=== PATIENT | male | born 1940 | race Caucasian/White ===

== ENCOUNTER 2017-12-03 14:00 | Observation (INO) | payer MEDICARE, OTHER ==
[2017-12-03 15:35] LABS: CHLORIDE,CL 103 mmol/L (98-107); SODIUM,NA 138 mmol/L (136-145)
[2017-12-03] MEDS ORDERED: Lactated Ringers 1,000 ML IV SCH (17:00)
[2017-12-03] MEDS: Lactated Ringers 1,000 ML IV SCH (21:52)
[2017-12-04] MEDS: Lactated Ringers 1,000 ML IV SCH (05:45)
[2017-12-04 06:16] VITALS: BP 122/69
[2017-12-04] MEDS ORDERED: SODIUM BICARBONATE PO SCH (07:00)
[2017-12-04] MEDS ORDERED: CITRIC ACID PO SCH (07:00)
[2017-12-04] MEDS ORDERED: ASPIRIN PO SCH (07:00)
[2017-12-04] MEDS ORDERED: Simvastatin 40 MG Tab PO SCH (08:00)
[2017-12-04] MEDS ORDERED: Lisinopril 2.5 MG Tab PO SCH (08:00)
[2017-12-04] MEDS ORDERED: Aspirin 81 MG Tab.EC PO SCH (08:00)
[2017-12-04] MEDS ORDERED: Multivitamins with Iron/Calcium/Folic Acid/Minerals Tab PO SCH (08:00)
[2017-12-04] MEDS ORDERED: risperiDONE 0.25 MG Tab PO SCH (08:00)
[2017-12-04] MEDS ORDERED: Metoprolol Succinate 50 MG Tab.ER PO SCH (08:00)
[2017-12-04] MEDS ORDERED: metFORMIN 500 MG Tab PO SCH (08:00)
[2017-12-04] MEDS ORDERED: Sertraline 50 MG Tab PO SCH (08:00)
[2017-12-04] MEDS ORDERED: ClonazePAM 0.5 MG Tab PO SCH (08:00)
--- NOTE | 2017-12-04 08:37 | EDM.PDOC ---
ED HPI GENERAL MEDICAL PROBLEM - General Chief Complaint: General Stated Complaint: er Time Seen by Provider: 12/03/17 14:05 Source of Information: Reports: Patient, Family History Limitations: Reports: No Limitations - History of Present Illness INITIAL COMMENTS - FREE TEXT/NARRATIVE: Pt. presents to ER from clinic. Pt. has a history of [place]'s Disease, and his is concern because of some neurological changes. Pt. is a resident at [facility]. He was brought to the clinic to be seen by Keli Sullivan PA-C. She felt that the pt. possibly has a stroke and was sent to ER. states that the symptoms have been progressive and worsening of the past weeks to months. Symptoms include decreased verbal output, difficulty with feeding self, and increased drooling. Staff feels that the symptoms are chronic and don't appear to be an acute problem. Onset: Unknown/Unsure Duration: Chronic, Getting Worse Location: Reports: Head, Generalized - Related Data Allergies Allergy/AdvReac Type Severity Reaction Status Date / Time No Known Allergies Allergy Verified 12/03/17 14:19 Home Meds: Home Meds Aspirin/Sod Bicarb/Citric Acid [Rabia-[place] Original] 2 tab PO ACBRKBED [History] ClonazePAM [KlonoPIN] 0.5 mg PO BID 08/13/13 [History] Lisinopril 2.5 mg PO DAILY 08/13/13 [History] Simvastatin [Zocor] 20 mg PO DAILY 08/13/13 [History] Warfarin [Coumadin] 2.5 mg PO MOWEFR@20 08/13/13 [History] metFORMIN [Glucophage] 1,000 mg PO BID 08/13/13 [History] Aspirin [Halfprin] 81 mg PO DAILY 03/31/15 [History] Metoprolol Succinate [Toprol XL 50mg] 50 mg PO DAILY 03/31/15 [History] Multivitamin [Multivitamins] 1 each PO DAILY 10/31/15 [History] SitaGLIPtin [Januvia] 100 mg PO DAILY 10/31/15 [History] Sertraline [Zoloft] 50 mg PO DAILY 12/03/17 [History] Warfarin [Coumadin] 5 mg PO SUTUTHSA@20 12/03/17 [History] risperiDONE [Risperdal] 0.5 mg PO BID 12/03/17 [History] Past Medical History HEENT History: Reports: Hard of Hearing Cardiovascular History: Reports: High Cholesterol, Hypertension Gastrointestinal History: Reports: Other (See Below) Other Gastrointestinal History: dysphagia Genitourinary History: Reports: Prostate Disorder Musculoskeletal History: Reports: Osteoarthritis Neurological History: Reports: Other (See Below) Other Neuro History: [place]'s Psychiatric History: Reports: Dementia, Depression Endocrine/Metabolic History: Reports: Diabetes, Type II Social & Family History - Tobacco Use Smoking Status *Q: Never Smoker Second Hand Smoke Exposure: No - Caffeine Use Caffeine Use: Reports: None - Recreational Drug Use Recreational Drug Use: No ED ROS GENERAL - Review of Systems Review Of Systems: See Below Constitutional: Reports: No Symptoms HEENT: Reports: No Symptoms Respiratory: Reports: No Symptoms Cardiovascular: Reports: No Symptoms Endocrine: Reports: No Symptoms GI/Abdominal: Reports: No Symptoms : Reports: No Symptoms Musculoskeletal: Reports: No Symptoms Skin: Reports: No Symptoms Neurological: Reports: Pre-Existing Deficit (please see above. No pain. No difficulty with paresthesia or decreased muscolo). Denies: Confusion, Dizziness , Headache, Numbness, Syncope Psychiatric: Reports: No Symptoms Hematologic/Lymphatic: Reports: No Symptoms Immunologic: Reports: No Symptoms ED EXAM, GENERAL - Physical Exam Exam: See Below Exam Limited By: No Limitations General Appearance: Alert, WD/WN Eye Exam: Bilateral Eye: EOMI, PERRL Ears: Normal External Exam, Normal Canal, Hearing Grossly Normal, Normal TMs Ear Exam: Bilateral Ear: Auricle Normal, Canal Normal, TM normal Nose: Normal Inspection, Normal Mucosa, No Blood Throat/Mouth: Normal Inspection, Normal Lips, Normal Teeth, Normal Gums, Normal Oropharynx, Normal Voice, No Airway Compromise Head: Atraumatic, Normocephalic Neck: Normal Inspection, Supple, Non-Tender, Full Range of Motion Respiratory/Chest: No Respiratory Distress, Lungs Clear, Normal Breath Sounds, No Accessory Muscle Use, Chest Non-Tender Cardiovascular: Normal Peripheral Pulses, Regular Rate, Rhythm, No Edema, No Gallop, No JVD, No Murmur, No Rub Peripheral Pulses: 4+: Radial (L), Radial (R) GI/Abdominal: Normal Bowel Sounds, Soft, Non-Tender, No Organomegaly, No Distention, No Abnormal Bruit, No Mass (Male) Exam: No Hernia, Normal Inspection, Normal Prostate, Circumcised Rectal (Males) Exam: Deferred Back Exam: Normal Inspection, Full Range of Motion, NT Extremities: Normal Inspection, Normal Range of Motion, Non-Tender, Normal Capillary Refill, No Pedal Edema Neurological: No Motor/Sensory Deficits, Confused, Slow to Respond Psychiatric: Normal Affect, Normal Mood Skin Exam: Warm, Dry, Intact, Normal Color, No Rash Lymphatic: No Adenopathy Course - Vital Signs Last Recorded V/S: Last Vital Signs Temp 36.6 C 12/04/17 06:00 Pulse 68 12/04/17 06:00 Resp 19 12/04/17 06:00 BP 122/69 12/04/17 06:00 Pulse Ox 94 L 12/04/17 06:00 - Orders/Labs/Meds Orders: Active Orders 24 hr Category Date Time Status Chest 1V Frontal [CR] Stat Exams 12/03/17 14:34 Taken CULTURE BLOOD [BC] Stat Lab 12/03/17 14:50 Results CULTURE BLOOD [BC] Stat Lab 12/03/17 16:15 Results CULTURE STREP A CONFIRMATION [RM] Stat Lab 12/03/17 14:50 Results FREE T3 [REF] Stat Lab 12/03/17 14:50 Received FREE T4 [REF] Stat Lab 12/03/17 14:50 Received STREP SCRN A RAPID W CULT CONF [RM] Stat Lab 12/03/17 14:50 Results UA W/MICROSCOPIC [URIN] Stat Lab 12/03/17 15:23 Ordered Blood Culture x2 Reflex Set [OM.PC] Stat Oth 12/03/17 15:58 Ordered Medication Orders Aspirin (Halfprin) 81 mg PO DAILY [facility] Clonazepam (Klonopin) 0.5 mg PO BID [facility] Lactated Ringer's (Ringers, Lactated) 1,000 mls @ 125 mls/hr IV ASDIRECTED [facility] Last Admin: 12/04/17 05:45 Dose: 125 mls/hr Infusion: 12/04/17 05:45 Dose: 125 mls/hr Admin: 12/03/17 21:52 Dose: 125 mls/hr Lisinopril (Prinivil) 2.5 mg PO DAILY [facility] Metformin HCl (Glucophage) 1,000 mg PO BIDMEALS [facility] Metoprolol Succinate (Toprol Xl) 50 mg PO DAILY [facility] Multivitamins/Minerals (Thera M Plus) 1 tab PO DAILY [facility] Aspirin/Sod Bicarb/Citric Acid [Rabia- [place] Original] Own Supply 2 tab PO ACBRKBED [facility] Risperidone (Risperidal) 0.5 mg PO BID [facility] Sertraline HCl (Zoloft) 50 mg PO DAILY [facility] Simvastatin (Zocor) 20 mg PO DAILY [facility] Sitagliptin Phosphate (Januvia) 100 mg PO DAILY [facility] Warfarin Sodium (Coumadin) 2.5 mg PO MOWEFR@20 [facility] Warfarin Sodium (Coumadin) 5 mg PO SUTUTHSA@20 [facility] Labs: Laboratory Tests 12/03/17 12/03/17 12/03/17 Range/Units 14:50 14:54 14:54 WBC 6.6 (4.0-10.0) x10^3/uL RBC 4.25 L (4.5-6.0) x10^6/uL Hgb 13.4 L (14.0-18.0) g/dL Hct 42.0 (40.0-52.0) % MCV 98.8 H (78.0-93.0) fL MCH 31.5 (26.0-32.0) pg MCHC 31.9 L (32.0-36.0) g/dL RDW Coeff of [place] 14.7 (10.0-15.0) % Plt Count 176 (130-400) x10^3/uL Neut % (Auto) 62.5 (50.0-80.0) % Lymph % (Auto) 21.6 L (25.0-50.0) % Graham % (Auto) 6.8 (2.0-11.0) % Eos % (Auto) 8.0 H (0.0-4.0) % Baso % (Auto) 1.1 (0.2-1.2) % PT 31.4 H (9.6-11.4) SEC INR 3.0 (2.0-3.5) Sodium (136-145) mmol/L Potassium (3.5-5.1) mmol/L Chloride (98-107) mmol/L Carbon Dioxide (21-32) mmol/L Anion Gap (10-20) mmol/L BUN (7-18) mg/dL Creatinine (0.70-1.30) mg/dL Est Cr Clr Drug Dosing Estimated GFR (MDRD) Glucose (74-106) mg/dL Lactic Acid (0.4-2.0) mmol/L Calcium (8.5-10.1) mg/dL Corrected Calcium (8.5-10.1) mg/dL Phosphorus (2.6-4.7) mg/dL Magnesium (1.8-2.4) mg/dL Total Bilirubin (0.2-1.0) mg/dL AST (15-37) U/L ALT (16-63) U/L Alkaline Phosphatase (46-116) U/L Troponin I < 0.017 (<=0.056) ng/mL C-Reactive Protein (<=0.9) mg/dL Total Protein (6.4-8.2) g/dL Albumin (3.4-5.0) g/dL Globulin Albumin/Globulin Ratio TSH, Ultra Sensitive (0.358-3.74) uIU/mL Urine Color (YELLOW) Urine Appearance (CLEAR) Urine pH (5.0-8.0) Ur Specific [place] Urine Protein (NEGATIVE) mg/dL Urine Glucose (UA) (NEGATIVE) mg/dL Urine Ketones (NEGATIVE) mg/dL Urine Occult Blood (NEGATIVE) Urine Nitrite (NEGATIVE) Urine Bilirubin (NEGATIVE) Urine Urobilinogen (0.2) EU/dL Ur Leukocyte Esterase (NEGATIVE) Urine RBC (NOT SEEN) /HPF Urine WBC (NOT SEEN) /HPF Ur Squamous Epith Cells (NEGATIVE) /HPF Ur Renal Epithelial Cell (NEGATIVE) /HPF Amorphous Sediment Urine Bacteria (NEGATIVE) /HPF Urine Mucus (NEGATIVE) /LPF 12/03/17 12/03/17 12/03/17 Range/Units 14:54 14:54 15:23 WBC (4.0-10.0) x10^3/uL RBC (4.5-6.0) x10^6/uL Hgb (14.0-18.0) g/dL Hct (40.0-52.0) % MCV (78.0-93.0) fL MCH (26.0-32.0) pg MCHC (32.0-36.0) g/dL RDW Coeff of [place] (10.0-15.0) % Plt Count (130-400) x10^3/uL Neut % (Auto) (50.0-80.0) % Lymph % (Auto) (25.0-50.0) % Graham % (Auto) (2.0-11.0) % Eos % (Auto) (0.0-4.0) % Baso % (Auto) (0.2-1.2) % PT (9.6-11.4) SEC INR (2.0-3.5) Sodium 138 (136-145) mmol/L Potassium 4.3 (3.5-5.1) mmol/L Chloride 103 (98-107) mmol/L Carbon Dioxide 26 (21-32) mmol/L Anion Gap 13.3 (10-20) mmol/L BUN 21 H (7-18) mg/dL Creatinine 1.1 (0.70-1.30) mg/dL Est Cr Clr Drug Dosing TNP Estimated GFR (MDRD) > 60 Glucose 147 H (74-106) mg/dL Lactic Acid 3.2 H* (0.4-2.0) mmol/L Calcium 9.0 (8.5-10.1) mg/dL Corrected Calcium 9.40 (8.5-10.1) mg/dL Phosphorus 3.1 (2.6-4.7) mg/dL Magnesium 1.8 (1.8-2.4) mg/dL Total Bilirubin 0.4 (0.2-1.0) mg/dL AST 38 H (15-37) U/L ALT 34 (16-63) U/L Alkaline Phosphatase 74 (46-116) U/L Troponin I (<=0.056) ng/mL C-Reactive Protein 1.2 H (<=0.9) mg/dL Total Protein 7.7 (6.4-8.2) g/dL Albumin 3.5 (3.4-5.0) g/dL Globulin 4.2 Albumin/Globulin Ratio 0.83 TSH, Ultra Sensitive 8.973 H (0.358-3.74) uIU/mL Urine Color Dark yellow H (YELLOW) Urine Appearance Clear (CLEAR) Urine pH 7.5 (5.0-8.0) Ur Specific [place] 1.020 Urine Protein Negative (NEGATIVE) mg/dL Urine Glucose (UA) Negative (NEGATIVE) mg/dL Urine Ketones Negative (NEGATIVE) mg/dL Urine Occult Blood Negative (NEGATIVE) Urine Nitrite Negative (NEGATIVE) Urine Bilirubin Negative (NEGATIVE) Urine Urobilinogen 0.2 (0.2) EU/dL Ur Leukocyte Esterase Negative (NEGATIVE) Urine RBC 0-5 (NOT SEEN) /HPF Urine WBC 0-5 (NOT SEEN) /HPF Ur Squamous Epith Cells Not seen (NEGATIVE) /HPF Ur Renal Epithelial Cell Rare H (NEGATIVE) /HPF Amorphous Sediment Few Urine Bacteria Few H (NEGATIVE) /HPF Urine Mucus Few H (NEGATIVE) /LPF Meds: Medications Generic Name Dose Route Start Last Admin Trade Name Eladio PRN Reason Stop Dose Admin Aspirin 81 mg 12/04/17 08:00 Halfprin PO DAILY [facility] Clonazepam 0.5 mg 12/04/17 08:00 Klonopin PO BID [facility] Lactated Ringer's 1,000 mls @ 125 mls/hr 12/03/17 21:00 12/04/17 05:45 Ringers, Lactated IV 125 mls/hr ASDIRECTED [facility] Administration Lisinopril 2.5 mg 12/04/17 08:00 Prinivil PO DAILY [facility] Metformin HCl 1,000 mg 12/04/17 08:00 Glucophage PO BIDMEALS [facility] Metoprolol Succinate 50 mg 12/04/17 08:00 Toprol Xl PO DAILY [facility] Multivitamins/Minerals 1 tab 12/04/17 08:00 Thera M Plus PO DAILY [facility] Aspirin/Sod Bicarb/ 2 tab 12/04/17 07:00 Citric Acid [Rabia- PO [place] Original] ACBRKBED [facility] Own Supply Risperidone 0.5 mg 12/04/17 08:00 Risperidal PO BID [facility] Sertraline HCl 50 mg 12/04/17 08:00 Zoloft PO DAILY [facility] Simvastatin 20 mg 12/04/17 08:00 Zocor PO DAILY [facility] Sitagliptin Phosphate 100 mg 12/04/17 08:00 Januvia PO DAILY [facility] Warfarin Sodium 2.5 mg 12/05/17 20:00 Coumadin PO MOWEFR@20 [facility] Warfarin Sodium 5 mg 12/04/17 20:00 Coumadin PO SUTUTHSA@20 [facility] Discontinued Medications Generic Name Dose Route Start Last Admin Trade Name Freq PRN Reason Stop Dose Admin Lactated Ringer's 1,000 mls @ 250 mls/hr 12/03/17 17:00 12/03/17 17:30 Ringers, Lactated IV 250 mls/hr ASDIRECTED [facility] Administration Departure - Departure Time of Disposition: 16:45 Disposition: Admitted As Inpatient 66 Clinical Impression: [place]'s like disease, Lactic acidosis, Dehydration - Discharge Information - My Orders Last 24 Hours: My Active Orders 12/03/17 14:34 Chest 1V Frontal [CR] Stat 12/03/17 14:50 CULTURE BLOOD [BC] Stat CULTURE STREP A CONFIRMATION [RM] Stat FREE T3 [REF] Stat FREE T4 [REF] Stat STREP SCRN A RAPID W CULT CONF [RM] Stat 12/03/17 15:23 UA W/MICROSCOPIC [URIN] Stat 12/03/17 15:58 Blood Culture x2 Reflex Set [OM.PC] Stat 12/03/17 16:15 CULTURE BLOOD [BC] Stat - Assessment/Plan Last 24 Hours: My Active Orders 12/03/17 14:34 Chest 1V Frontal [CR] Stat 12/03/17 14:50 CULTURE BLOOD [BC] Stat CULTURE STREP A CONFIRMATION [RM] Stat FREE T3 [REF] Stat FREE T4 [REF] Stat STREP SCRN A RAPID W CULT CONF [RM] Stat 12/03/17 15:23 UA W/MICROSCOPIC [URIN] Stat 12/03/17 15:58 Blood Culture x2 Reflex Set [OM.PC] Stat 12/03/17 16:15 CULTURE BLOOD [BC] Stat
[2017-12-04] MEDS ORDERED: Warfarin 5 MG Tab PO SCH (20:00)
[2017-12-05] MEDS ORDERED: Warfarin 2.5 MG Tab PO SCH (20:00)
--- NOTE | 2017-12-08 07:57 | PCM.DCSUM1 ---
Discharge Summary - Hospital Course Free Text/Narrative:: Pt. lactic acid has normalized. He was hydrated overnight. and nursing staff feel that he is stronger. His verbal effort is much improved. He is eating and drinking. No experiencing any dyspnea or other complaints. - Discharge Data Discharge Date: 12/04/17 Discharge Disposition: DC/Tfer to SNF 03 Condition: Good - Discharge Diagnosis/Problem(s) (1) [place] chorea SNOMED Code(s): 84499353 ICD Code: G10 - [place]'S DISEASE Status: Acute (2) Dehydration SNOMED Code(s): 42960108 ICD Code: E86.0 - DEHYDRATION Status: Acute - Patient Instructions Diet: Mechanical Soft Driving: Do Not Drive - Discharge Plan Home Medications: Home Meds Aspirin/Sod Bicarb/Citric Acid [Rabia-[place] Original] 2 tab PO ACBRKBED [History] ClonazePAM [KlonoPIN] 0.5 mg PO BID 08/13/13 [History] Lisinopril 2.5 mg PO DAILY 08/13/13 [History] Simvastatin [Zocor] 20 mg PO DAILY 08/13/13 [History] Warfarin [Coumadin] 2.5 mg PO MOWEFR@20 08/13/13 [History] metFORMIN [Glucophage] 1,000 mg PO BID 08/13/13 [History] Aspirin [Halfprin] 81 mg PO DAILY 03/31/15 [History] Metoprolol Succinate [Toprol XL 50mg] 50 mg PO DAILY 03/31/15 [History] Multivitamin [Multivitamins] 1 each PO DAILY 10/31/15 [History] SitaGLIPtin [Januvia] 100 mg PO DAILY 10/31/15 [History] Sertraline [Zoloft] 50 mg PO DAILY 12/03/17 [History] Warfarin [Coumadin] 5 mg PO SUTUTHSA@20 12/03/17 [History] risperiDONE [Risperdal] 0.5 mg PO BID 12/03/17 [History] Forms: ED Department Discharge Referrals: Wilfredo Javed MD [Primary Care Provider] - - Patient Data Vitals - Most Recent: Last Vital Signs Temp 36.6 C 12/04/17 06:00 Pulse 68 12/04/17 08:54 Resp 19 12/04/17 06:00 BP 122/69 12/04/17 08:57 Pulse Ox 94 L 12/04/17 06:00 Weight - Most Recent: 93.123 kg DOM Results - Last 24 hrs: Microbiology 12/03/17 14:50 Aerobic Blood Culture - Preliminary Blood - Venous NO GROWTH AFTER 4 DAYS Anaerobic Blood Culture - Final 12/03/17 16:15 Aerobic Blood Culture - Preliminary Blood - Venous - Lab Draw NO GROWTH AFTER 4 DAYS Anaerobic Blood Culture - Final Med Orders - Current: Current Medications Discontinued Medications Aspirin (Halfprin) 81 mg PO DAILY [facility] Last Admin: 12/04/17 08:54 Dose: 81 mg Clonazepam (Klonopin) 0.5 mg PO BID [facility] Last Admin: 12/04/17 08:58 Dose: 0.5 mg Lactated Ringer's (Ringers, Lactated) 1,000 mls @ 250 mls/hr IV ASDIRECTED [facility] Last Admin: 12/03/17 17:30 Dose: 250 mls/hr Lactated Ringer's (Ringers, Lactated) 1,000 mls @ 125 mls/hr IV ASDIRECTED [facility] Last Admin: 12/04/17 05:45 Dose: 125 mls/hr Lisinopril (Prinivil) 2.5 mg PO DAILY [facility] Last Admin: 12/04/17 08:57 Dose: 2.5 mg Metformin HCl (Glucophage) 1,000 mg PO BIDMEALS [facility] Last Admin: 12/04/17 08:56 Dose: 1,000 mg Metoprolol Succinate (Toprol Xl) 50 mg PO DAILY [facility] Last Admin: 12/04/17 08:54 Dose: 50 mg Multivitamins/Minerals (Thera M Plus) 1 tab PO DAILY [facility] Last Admin: 12/04/17 08:56 Dose: 1 tab Aspirin/Sod Bicarb/Citric Acid [Rabia- [place] Original] Own Supply 2 tab PO ACBRKBED [facility] Last Admin: 12/04/17 08:59 Dose: Not Given Risperidone (Risperidal) 0.5 mg PO BID [facility] Last Admin: 12/04/17 08:58 Dose: 0.5 mg Sertraline HCl (Zoloft) 50 mg PO DAILY [facility] Last Admin: 12/04/17 08:56 Dose: 50 mg Simvastatin (Zocor) 20 mg PO DAILY [facility] Last Admin: 12/04/17 08:57 Dose: 20 mg Sitagliptin Phosphate (Januvia) 100 mg PO DAILY [facility] Last Admin: 12/04/17 08:55 Dose: 100 mg Warfarin Sodium (Coumadin) 2.5 mg PO MOWEFR@20 [facility] Warfarin Sodium (Coumadin) 5 mg PO SUTUTHSA@20 [facility]
== END 2017-12-04 13:50 ==
LOC: VM.ED 14:00 → VM.MS 16:05
PROVIDERS: ADMIT Physician Assistant; ATTEND Physician Assistant
DX: G10 Huntington's disease (principal); E86.0 Dehydration; E78.00 Pure hypercholesterolemia, unspecified; I10 Essential (primary) hypertension; M19.90 Unspecified osteoarthritis, unspecified site; F02.80 Dementia in other diseases classified elsewhere, unspecified severity, without behavioral disturbance, psychotic disturbance, mood disturbance, and anxiety; F32.9 Major depressive disorder, single episode, unspecified; E11.9 Type 2 diabetes mellitus without complications; Z79.82 Long term (current) use of aspirin; Z79.899 Other long term (current) drug therapy; Z79.01 Long term (current) use of anticoagulants; Z79.84 Long term (current) use of oral hypoglycemic drugs
CPT/HCPCS: 36415; 71045; 80053; 81001; 82962; 83605; 83735; 84100; 84439; 84443; 84481; 84484; 85025; 85610; 86140; 87040; 87081; 87880-QW; 93005; 96360; 96361; 99284-GF; 99285; A9270-GY; G0378; J7120